=== PATIENT | female | born 1950 | race Asian ===

== ENCOUNTER 2018-02-11 06:58 | Day surgery (SDC) | payer MEDICAID ==
[~2018-02-11] VITALS: Ht 160 cm; Wt 89.1 kg
[~2018-02-11 06:58] MED LIST: GLYB5 PO; LOSA50TA37 PO; METF500T4 PO
[2018-02-11] MEDS ORDERED: PROPOFOL 1% 20 ML VIAL IVP ONE (06:59)
[2018-02-11] MEDS ORDERED: SODIUM CHLORIDE 0.9% 1,000 ML IV ONE ×2 (07:00→07:32)
[2018-02-11 14:08] LABS: GLUCOMETER DEV NAME(LOC) SDS 5; GLUCOSE,POINT OF CARE 135 MG/DL (70-110)
== END 2018-02-11 10:30 | disposition home or self-care (01) ==
LOC: SURGERY 06:58
PROVIDERS: ATTEND Internal Medicine Gastroenterology
DX: K64.2 Third degree hemorrhoids (principal); K52.89 Other specified noninfective gastroenteritis and colitis; I10 Essential (primary) hypertension; E78.5 Hyperlipidemia, unspecified; E11.9 Type 2 diabetes mellitus without complications; Z79.84 Long term (current) use of oral hypoglycemic drugs; Z79.899 Other long term (current) drug therapy
CPT/HCPCS: 45380; 82962; 88305; J2704; J7030

== ENCOUNTER 2020-11-22 10:28 | Day surgery (SDC) | payer MEDICAID, OTHER ==
[2020-11-21 12:37] LABS: COVID AG,FIA SOURCE NASOPHARYNGEAL
[~2020-11-22] VITALS: Ht 162.6 cm; Wt 81.8 kg
[~2020-11-22 10:28] MED LIST changes: +ATOR40TA71 PO; -GLYB5 PO; -METF500T4 PO; +SODIUM CHLORIDE 0.9% 1,000 ML ONE
[2020-11-22] MEDS ORDERED: SODIUM CHLORIDE 0.9% 1,000 ML IV ONE (10:30)
[2020-11-22] MEDS ORDERED: ASPI-1522 PO (10:54)
[2020-11-22] MEDS ORDERED: METF-960 PO (10:54)
[2020-11-22] MEDS ORDERED: GLYB5 PO (10:54)
[2020-11-22 11:15] LABS: GLUCOMETER DEV NAME(LOC) SDS.; GLUCOSE,POINT OF CARE 118 MG/DL (70-110)
== END 2020-11-22 14:15 | disposition home or self-care (01) ==
LOC: SURGERY 10:28
PROVIDERS: ATTEND Internal Medicine Gastroenterology
DX: K29.50 Unspecified chronic gastritis without bleeding (principal); K21.9 Gastro-esophageal reflux disease without esophagitis; I10 Essential (primary) hypertension; E11.9 Type 2 diabetes mellitus without complications; E78.00 Pure hypercholesterolemia, unspecified; Z79.899 Other long term (current) drug therapy
CPT/HCPCS: 43239; 82962; 87426; 88305; 88312; 88313; C9803; J7030

== ENCOUNTER 2023-06-28 16:24 | Emergency (ER) | payer OTHER ==
[~2023-06-28] VITALS: Ht 170.2 cm; Wt 76.0 kg
[~2023-06-28 16:24] MED LIST changes: +ASPI-1522 PO; +GLYB-145 PO; +LOSA-382 PO; -LOSA50TA37 PO; +METF-1211 PO; -SODIUM CHLORIDE 0.9% 1,000 ML ONE
[2023-06-28 16:30] VITALS: BP 181/89; PULSE 91; RESP 16; TEMP 98.5
[2023-06-28] MEDS ORDERED: ACET-2080 PO (19:09)
[2023-06-28] MEDS ORDERED: IBUP-1554 PO (19:09)
[2023-06-28] MEDS ORDERED: ACETAMINOPHEN/CODEINE 300-30 MG TABLET PO ONE (19:15)
== END 2023-06-28 19:24 | disposition home or self-care (01) ==
LOC: EMS 16:25
DX: S83.91XA Sprain of unspecified site of right knee, initial encounter (principal); M17.11 Unilateral primary osteoarthritis, right knee; I10 Essential (primary) hypertension; X58.XXXA Exposure to other specified factors, initial encounter; Y93.89 Activity, other specified; Y92.89 Other specified places as the place of occurrence of the external cause; Y99.8 Other external cause status
CPT/HCPCS: 29505; 99283

== ENCOUNTER 2024-02-02 09:05 | Emergency (ER) | payer MEDICARE, OTHER ==
[~2024-02-02] VITALS: Ht 152.4 cm; Wt 77.3 kg
[~2024-02-02 09:05] MED LIST changes: +ACET-2080 PO; -ASPI-1522 PO; -GLYB-145 PO; +IBUP-1554 PO
[2024-02-02] MEDS ORDERED: HYDR12.54 PO (09:27)
[2024-02-02 09:32] VITALS: TEMP 98.3
[2024-02-02 10:00] LABS: BASOPHILS % (AUTO) 0.6 % (0.0-2.0); EOSINOPHILS % (AUTO) 4.1 % (1.0-6.0); HEMATOCRIT 42.3 % (36-46); HEMOGLOBIN 14.1 g/dL (12.0-16.0); LYMPHOCYTES # (AUTO) 1.6 K/uL (1.0-4.8); LYMPHOCYTES % (AUTO) 37.7 % (22.0-44.0); MEAN CORPUSCULAR HGB CONC 33.4 G/dL (31.0-37.0); MEAN CORPUSCULAR VOLUME 90 fL (80-100); MONOCYTES # (AUTO) 0.6 K/uL (0.1-1.0); MONOCYTES % (AUTO) 13.9 % (2.0-9.0); NEUTROPHILS # (AUTO) 1.8 K/uL (1.8-7.7); NEUTROPHILS % (AUTO) 43.7 % (40.0-70.0); PLATELET COUNT (AUTO) 254 K/uL (150-450); RED BLOOD CELL COUNT(AUTO) 4.71 MIL/uL (4.00-5.20); RED CELL DISTRIBUTION WIDTH 13.9 % (11.5-14.5); WHITE BLOOD COUNT (AUTO) 4.1 K/uL (4.5-11.0)
[2024-02-02 10:10] LABS: ANION GAP 8 mmol/L (8-16); CALCIUM, TOTAL 9.5 mg/dL (8.8-10.5); CARBON DIOXIDE 28 mmol/L (22-29); CHLORIDE 97 mmol/L (98-107); CREATININE 0.89 mg/dL (0.60-1.30); GLOMERULAR FILTR. RATE CALC > 60 mL/min (>60); GLUCOSE,RANDOM 152 mg/dL (70-110); POTASSIUM 3.7 mmol/L (3.5-5.1); SODIUM SERUM 133 mmol/L (136-145); UREA NITROGEN, BLOOD 11 mg/dL (7-18)
[2024-02-02 10:14] LABS: APPEARANCE,URINE CLEAR (CLEAR); BILIRUBIN,URINE NEGATIVE (NEGATIVE); COLOR,URINE YELLOW (YELLOW); GLUCOSE, URINE (UA) NEGATIVE (NEGATIVE); KETONES,URINE NEGATIVE (NEGATIVE); LEUKOCYTE ESTERASE ,URINE TRACE (NEGATIVE); NITRATE,URINE NEGATIVE (NEGATIVE); OCCULT BLOOD,URINE NEGATIVE (NEGATIVE); PH,URINE 5.5 (5.0-8.0); PROTEIN,URINE TRACE mg/dL (NEGATIVE); SPECIFIC GRAVITIY, URINE 1.026 (1.003-1.030); UROBILINOGEN,URINE <=1.0 mg/dL (<=1.0)
[2024-02-02 10:21] LABS: RBC,URINE None Seen /HPF (0-2); WBC,URINE 0-2 /HPF (0-5)
[2024-02-02 10:21] LABS: ALANINE AMINOTRANSFERASE 49 U/L (12-78); ALBUMIN 3.4 g/dL (3.4-5.0); ALKALINE PHOSPHATASE 64 U/L (46-116); ASPARTATE AMINOTRANSFERASE 36 U/L (15-37); BILIRUBIN,TOTAL 0.4 mg/dL (0.1-1.0); TOTAL PROTEIN, SERUM 7.9 g/dL (6.4-8.2)
[2024-02-02 10:22] LABS: BACTERIA,URINE None Seen /HPF (None Seen); SQUAMOUS EPITHELIAL CELL,UR Moderate /LPF (None Seen)
[2024-02-02] MEDS: IBUPROFEN 600 MG TABLET PO ONE (10:38)
[2024-02-02] MEDS: ACETAMINOPHEN 500 MG TABLET PO ONE (10:39)
[2024-02-02] MEDS: GuaiFENesin/D-METHORPHAN [SUGAR-FREE] 200-20MG/10 ML SYRUP UDCUP PO ONE (10:40)
[2024-02-02 11:04] LABS: INFLUENZA A-RTPCR,COMBO POSITIVE (NEGATIVE); INFLUENZA B-RTPCR,COMBO NEGATIVE (NEGATIVE); RESPIRATORY SYNCYTIAL VRS-PCR NEGATIVE (NEGATIVE); SARS COVID19 RTPCR, COMBO NEGATIVE (NEGATIVE)
[2024-02-02 11:35] VITALS: BP 112/66; PULSE 81; RESP 18
[2024-02-02] MEDS ORDERED: ACET-66 PO (11:59)
[2024-02-02] MEDS ORDERED: GUAIFDM PO (11:59)
== END 2024-02-02 12:08 | disposition home or self-care (01) ==
LOC: EMS 09:05
DX: J10.1 Influenza due to other identified influenza virus with other respiratory manifestations (principal); I10 Essential (primary) hypertension; Z20.822 Contact with and (suspected) exposure to COVID-19
CPT/HCPCS: 99284; 0241U; 71045; 80053; 81001; 85025; 36415

== ENCOUNTER 2025-02-06 09:14 | Emergency (ER) | payer MEDICARE, OTHER ==
[~2025-02-06] VITALS: Ht 162.6 cm; Wt 81.8 kg
[~2025-02-06 09:14] MED LIST changes: -ACET-2080 PO; +ACET-66 PO; +GUAIFDM PO; +HYDR12.54 PO
[2025-02-06 09:20] VITALS: TEMP 98.4
[2025-02-06 09:47] VITALS: BP 122/61; PULSE 90; RESP 18; O2SAT 96
[2025-02-06 09:49] LABS: COVID AG,FIA SOURCE NASAL SWAB
[2025-02-06] MEDS ORDERED: CEPH-558 PO (09:57)
[2025-02-06] MEDS ORDERED: BENZ-227 PO (09:57)
[2025-02-06] MEDS ORDERED: IBUP-1554 PO (09:57)
[2025-02-06] MEDS: ACETAMINOPHEN 500 MG TABLET PO ONE (10:06)
[2025-02-06] MEDS: GuaiFENesin/D-METHORPHAN [SUGAR-FREE] 200-20MG/10 ML SYRUP UDCUP PO ONE (10:06)
[2025-02-06 10:07] LABS: INFLUENZA TYPE A NEGATIVE FOR TYPE A (NEGATIVE); INFLUENZA TYPE B NEGATIVE FOR TYPE B (NEGATIVE); SARS-COV2 (COVID) ANTIGEN,FIA Negative (Negative)
== END 2025-02-06 10:22 | disposition home or self-care (01) ==
LOC: EMS 09:14
DX: J98.4 Other disorders of lung (principal); R09.81 Nasal congestion; I10 Essential (primary) hypertension; Z79.84 Long term (current) use of oral hypoglycemic drugs; Z79.899 Other long term (current) drug therapy; Z20.822 Contact with and (suspected) exposure to COVID-19
CPT/HCPCS: 87804; 99283